=== PATIENT | male | born 1955 | race Caucasian/White ===

== ENCOUNTER → 2017-03-26 | Day surgery (SDC) | payer OTHER ==
[~2017-03-26] VITALS: Ht 184.2 cm; Wt 95.5 kg
[~2017-03-26] MED LIST: AMIO200T PO; APIX5TAB PO; ASCO-294 PO; CARV12.52 PO; CEFU500T61 PO; CHOL10008 PO; Heparin 10,000 Unit/1,000 mL NS Premix IV ONE; LACT1CAP65 PO; LEVO175T5 PO; LOSA25TA2 PO; LOSA25TA21 PO; Lactated Ringer's 1,000 ML IV SCH; MULT-676 PO; OSTEOMATRIX PO; RESV100C PO; STRESS RELIEF PO; UBID100C16 PO; VIT1TABL83 PO; [UNRECOGNIZED DRUG - OTHER] PO
[2017-03-26 11:12] LABS: BASOPHILS % (AUTO) 1.1 % (0-3); EOSINOPHILS % (AUTO) 3.6 % (0-5); MONOCYTES % (AUTO) 9.7 % (4-12); Mean Corpuscular Hemoglobin 29.6 pg (27.0-35.0); Mean Corpuscular Volume 89.9 fL (81-100); NEUTROPHILS % (AUTO) 65.2 % (40-74); Platelet Count 224 bil/L (150-400)
[2017-03-26 11:17] VITALS: BP 144/84; PULSE 67; RESP 19; O2SAT 95
[2017-03-26 11:29] LABS: INR 0.99 ratio
--- NOTE | 2017-03-26 11:46 | NUR ---
Admit HANNAH Admitted to [facility] about 1030. VSS. Afebrile. Denies pain. Tele SR with 1st degree AVB. IVs started and labs sent. Procedure and recovery reviewed. Verbalizes understanding. See EMR for further info and assessment. Awaiting senior label specialist.
--- NOTE | 2017-03-26 13:30 | NUR ---
Procedure cancelled After anesthesia assessment, Decision made to cancel procedure given pt's EF, cough, and wheeze at time of their assessment. IV's discontinued intact. Cardiology office notified of need to reschedule. Eliquis card given. Discharge instructions given, see sheets. Verbalizes understanding. Discharged ambulatory with all belongings in no distress at 1325.
== END | disposition home or self-care (01) ==
LOC: SOUO 01:03
PROVIDERS: ATTEND Internal Medicine Cardiovascular Disease
DX: I47.1 Supraventricular tachycardia (principal); Z53.09 Procedure and treatment not carried out because of other contraindication; I48.92 Unspecified atrial flutter; R05 Cough
CPT/HCPCS: 36415; 80048; 85025; 85610; 93005; J1644